=== PATIENT | male | born 1965 | race Caucasian/White ===

== ENCOUNTER 2016-10-30 17:49 | Inpatient (IN) | payer OTHER ==
[~2016-10-30] VITALS: Ht 170.2 cm; Wt 142.7 kg
[2016-10-30] VITALS (10 sets, daily range): BP systolic 134–158; BP diastolic 62–96; PULSE 98–127; RESP 20–32; O2SAT 93–98
[2016-10-30] MEDS ORDERED: Albuterol 2.5 mg/3 mL Inhalation Solution NEB ONE ×6 (17:56→21:10)
[2016-10-30] MEDS ORDERED: 0.9% Sodium Chloride 1,000 ML IV ONE (17:58)
[2016-10-30] MEDS ORDERED: Magnesium Sulf 2 Gm/50mL Water 2 GM in IV Premix 1 EACH IV ONE (18:00)
[2016-10-30] MEDS ORDERED: MethylprednisoLONE Sodium Succinate 62.5 mg/mL 2 mL Inj IVPUSH ONE (18:00)
--- NOTE | 2016-10-30 18:01 | ED.REPORT ---
HPI-Dyspnea / Wheezing Date of Service Oct 30, 2016 ED Provider: Michel Delgado MD History of Present Illness: OCC This is a 51 year old male with a history of COPD, asthma, DM, and HTN presenting to the emergency department from urgent care via EMS complaining of dyspnea that began 2 days ago. At urgent care, oxygen saturation of 90%, fever 100.1 F, administered duoneb x3 and 500 mg Tylenol. En route, pt started on CPAP. Associated symptoms include shaking chills, productive cough, and diaphoresis. Nursing Notes Stated Complaint: RESPIRATORY DISTRESS Chief Complaint: Respiratory Distress Nursing Notes Reviewed: Yes (Polyplus-transfection, MyWave not reconciled) Allergies: Coded Allergies: hydrocodone (Verified Allergy, Intermediate, itchy, 10/30/16) General Time Seen by MD: 17:47 Chief Complaint Shortness of breath Hx Obtained From: Patient, EMS Arrived By: Ambulance Sudden in Onset?: Yes Onset Occurred: 2 days ago Symptom Duration: Since onset Severity: Current: No pain currently Pertinent Negative: Pt denies other symptoms Recent Healthcare: No recent hospitalization, Recent doctor visit Similar Sx Previous: No Past Medical History Past Medical History Asthma Hypertension Diabetes mellitus Hypercholesterolemia Obesity History sleep apnea Smoking History Former Smoker Social History Alcohol Use: Denies alcohol use Ambulatory Status Independent Review of Systems Constitutional: Reports: Chills, Denies: Fever Respiratory: Reports: Prod cough, white, Shortness of breath Cardiovascular: Denies: Chest pain Musculoskeletal: Denies: Back pain, Extremity pain, Extremity swelling Complete sys rev & neg: except as marked. Physical Exam Initial Vital Signs Vital Signs (First) Date Time Temp Pulse Resp B/P Pulse Ox O2 Delivery O2 Flow Rate FiO2 10/30/16 17:50 38.2 112 32 153/96 98 BiPAP 10/30/16 18:16 32 10/30/16 19:20 8 Initial VS: Reviewed, Vital signs abnormal Head / Eyes: Atraumatic, Normocephalic, PERRL ENT: Mucous membranes moist, Conjunctiva normal, No scleral icterus Extremities: Vascular intact, Neuro intact, No swelling, No tenderness Skin: Warm, Dry, No cyanosis Neurologic: Alert, Oriented, Nonfocal Psychiatric: Mood/affect normal, Behavior normal, Normal thought content General/Constitutional: Awake, Alert Neck: Atraumatic, Supple, No meningismus, Full range of motion, No swelling, Non-tender, No masses Resp Distress / Stridor: Positive: Resp distress moderate Wheezing / Retractions: Positive: Wheeze insp/exp diffuse Cardiovascular: No murmurs, No rubs Heart Rate / Rhythm: Positive: Tachycardia Interpretation & Diagnostics Lab Results Interpretation Result Diagram: 10/30/16180210/30/161802 Test 10/30/16 18:03 10/30/16 18:13 White Blood Count 8.2th/mm3 (3.8-10.1) Red Blood Count 5.99mil/mm3 (4.40-5.80) Hemoglobin 17.4g/dL (13.8-17.2) Hematocrit 50.7% (41.0-50.0) Mean Corpuscular Volume 85fL (81-100) Mean Corpuscular Hemoglobin 29.0pg (27.0-35.0) Mean Corpuscular Hemoglobin Concent 34.3% (32.0-37.0) Red Cell Distribution Width 14.1% (12.3-15.4) Platelet Count 420bil/L (150-400) Neutrophils (%) (Auto) 60% (40-74) Lymphocytes (%) (Auto) 29% (14-46) Monocytes (%) (Auto) 9% (4-12) Eosinophils (%) (Auto) 2% (0-5) Basophils (%) (Auto) 0% (0-3) Sodium Level 138mEq/L (134-144) Potassium Level 4.4mEq/L (3.5-5.2) Chloride Level 96mEq/L (97-108) Carbon Dioxide Level 23mmol/L (18-29) Blood Urea Nitrogen 9mg/dL (6-24) Creatinine 0.93mg/dL (0.76-1.27) Estimat Glomerular Filtration Rate 92mL/min (>59) Glucose Level 141mg/dL (60-99) Calcium Level 9.8mg/dL (8.5-10.1) Magnesium Level 2.1mg/dL (1.6-2.6) Total Bilirubin 0.2mg/dL (0.0-1.2) Aspartate Amino Transf (AST/SGOT) 31U/L (0-50) Alanine Aminotransferase (ALT/SGPT) 39U/L (0-44) Alkaline Phosphatase 102U/L (25-150) Troponin T < 0.010ug/L (0.0-0.011) Pro-B-Type Natriuretic Peptide 34.56pg/mL (0-121) Total Protein 7.8g/dL (6.4-8.4) Albumin 4.6g/dL (3.4-5.0) Procalcitonin 0.12ng/mL (0.00-0.08) Lactic Acid Level 4.0mmol/L (0.4-2.0) Lab Results Interpretation: CBC positive hemoconcentration CMP normal Lactic acid elevated-literature demonstrates that albuterol increases lactic acid, patient's received aggressive albuterol here and this may contribute to component Blood cultures 2 pending Influenza negative X-Ray Chest Interpretation Chest Xray Interpretation: IMPRESSION: Mildly reduced inspiratory volume, but no acute disease. Dictated by: Dillan Navas M.D. on 10/30/2016 at 18:15 Approved by: Dillan Navas M.D. on 10/30/2016 at 18:16 Re-Eval/Medical Decision Med Decision/Clinical Course This is a 51-year-old male ex-smoker with a history of moderate asthma who developed a fever and a cough yesterday, and presented to urgent care in fulminant respiratory distress and respiratory failure., Tachycardic, mildly hypoxic with a respiratory rate of 52. Multiple initial duo nebs were initiated , and rapid EMS transport was pursued. Mask, they initiated BiPAP therapy and rapidly transported-the patient feels that he is improving. Severe asthma exacerbations before but not required hospitalization, en route reports this is the worst-but it feels similar to prior asthma. He has had an increased cough with some sputum production. He denies tulio chest pain just a sense of shortness of breath. No prior history of DVT PE, no prior known cardiac disease. On arrival the patient has BiPAP in place, he is able to nod yes or no answer limited questions but has very poor air movement with moderate respiratory distress, audible bronchospasm. He is tachycardic and tachypneic, but is not currently hypoxic is receiving supplemental O2. He is significantly obese, but I do not appreciate any overt findings of venous thromboembolism on clinical exam. The patient received [id number] aggressive nebulizers. He received DuoNeb with the Atrovent component prior to arrival, received steroids, magnesium, and over 30 mg of albuterol. CPAP support initially, and made marked improvement, to the point that the patient's now able to converse, and a trial off CPAP is being pursued. Laboratory studies are negative for influenza, blood cultures are pending, he appears hemoconcentrated so IV fluids are given. Lactic acid is elevated, but I suspect this is secondary to the massive amounts of albuterol that is received the studies of indicated albuterol does cause direct lactic acid elevation-the patient does not appear septic. He is however being treated with empiric ceftriaxone and Zithromax given the question of a pneumonia and the presentation. The patient did improve to the point that we are able to discontinue the CPAP. He is still moderately bronchospastic but is now conversant and no longer in fulminant respiratory distress, and overall is in much improved condition. He is being admitted for continued management. Source of Hx: Old records, EMS Re-Evaluation/Progress : Time of Eval: 18:42 Patient Status: Condition improved, Mild relief Consultation : Referral / Consult Name: Albania Magana DO Consulted With: Hospitalist Call Returned at: 19:48 Digital Retoucher: Accepts admit Differential Diagnosis: Positive: Asthma, Respiratory failure, Upper resp infection, Negative: Acute coronary syndrome, Hypertensive emergency, Myocardial infarction, Pneumothorax, Pulmonary embolism Counseled Regarding: Diagnosis, Lab results, Need for follow-up, Need for admission Discharge & Departure Impression: Primary Impression: Status asthmaticus Asthma severity: severe persistent Qualified Code: J45.52 - Severe persistent asthma with status asthmaticus Additional Impression: Respiratory infection Disposition: ADMITTED TO HOSPITAL Discharge Condition All VS Reviewed: Yes Condition: Stable Referrals: James Reyes DO (PCP) Crit Care Except Billable Proc Time Spent: 30-74 minutes Services Performed: Patient management by me, Time spent at bedside, Reviewing test results, Reviewing imaging, Discussing patient care, Documentation in record, Time with fam/surrogate Scribe Attestation Portions of this note were transcribed by Katerina Cisneros. I, Dr. Delgado personally performed the history, physical exam and medical decision-making; I reviewed and confirmed the accuracy of the information in the transcribed note. Signed by: astrid Wilkins. 10/30/2016, 23:30. Michel Delgado MD Oct 30, 2016 18:01 KATERINA CISNEROS Oct 30, 2016 18:05
[2016-10-30 18:05] LABS: Mean Corpuscular Volume 85 fL (81-100); Platelet Count 420 bil/L (150-400)
[2016-10-30 18:06] LABS: BASOPHILS % (AUTO) 0 % (0-3); EOSINOPHILS % (AUTO) 2 % (0-5); MONOCYTES % (AUTO) 9 % (4-12); NEUTROPHILS % (AUTO) 60 % (40-74)
--- NOTE | 2016-10-30 18:16 | DRSVH ---
PROCEDURE: X-RAY CHEST ONE VIEW, PORTABLE ([id number]) INDICATIONS: SOB fever TECHNIQUE: One view of the chest was acquired. COMPARISON: [facility], CR, XR CHEST 2VW, 06/03/2016, 13:31. [facility], CR , CHEST 2VW, 12/25/2013, 8:45. FINDINGS: Surgical changes and devices: None. Lungs and pleura: No pleural effusions or pneumothorax. Lungs are clear. Mediastinum: Mediastinal contours appear normal. Heart size is normal. Bones and chest wall: No suspicious bony lesions. Overlying soft tissues appear unremarkable. IMPRESSION: Mildly reduced inspiratory volume, but no acute disease. Dictated by: Dillan Navas M.D. on 10/30/2016 at 18:15 Approved by: Dillan Navas M.D. on 10/30/2016 at 18:16
[2016-10-30 18:44] LABS: Magnesium 2.1 mg/dL (1.6-2.6)
[2016-10-30 18:47] LABS: TROPONIN T < 0.010 ug/L (0.0-0.011)
[2016-10-30] MEDS ORDERED: Azithromycin Inj 500 MG in Dextrose 5% w/Vial Mate 250 ML IV ONE (19:20)
[2016-10-30] MEDS ORDERED: cefTRIAXone Inj 2,000 MG in Dextrose 5% Minibag Plus 50 ML IV ONE (19:20)
[2016-10-30] MEDS ORDERED: Alum-Mag Hydrox-Simeth 30 mL Suspension PO PRN (19:55)
[2016-10-30] MEDS ORDERED: Polyethylene Glycol (PEG) 17 Gm Powder PO PRN (19:55)
[2016-10-30] MEDS ORDERED: Ondansetron 2 mg/mL 2 mL Inj IVPUSH PRN (19:55)
[2016-10-30] MEDS ORDERED: DULoxetine 30 mg DR Capsule PO ONE (20:00)
[2016-10-30] MEDS ORDERED: oxyCODONE-Acetamin 5-325 mg Tablet PO ONE (20:00)
[2016-10-30] MEDS ORDERED: Glucose 40% Oral Gel 15 Gm Tube PO PRN (21:25)
[2016-10-30] MEDS ORDERED: Albuterol 1.25 mg/3 mL Inhalation Solution NEB PRN (21:25)
--- NOTE | 2016-10-30 21:38 | PCM.HPMED ---
Subjective Date of Service Oct 30, 2016 Primary Provider: Admitting Physician: Primary Care Physician: James Reyes DO Attending Physician: Chief Complaint: Respiratory distress History of Present Illness: Patient is a 51-year-old morbidly obese gentleman with history of asthma, hypertension, depression who presents to the [facility] ER with a 2 day complaint of respiratory distress. Patient reports that on Sunday night ([facility] he started to experience coughing fits associated with difficulty getting full breath. These coughs were nonproductive. He reports that on Sunday/ he used his nebulizer (albuterol) 3 times, and this helped to relieve some of his symptoms. Unfortunately, early this morning despite feeling well he did use his nebulizer, and reports that since that time this morning he has progressively become more short of breath with more coughing and more respiratory distress. He presented at [facility] [place] [facility] and was subsequently sent to the ER via ambulance. As far as his asthma history: He was diagnosed in 2013, but has yet to perform any PFTs.Spirometry from 02/12/2014 demonstrates prebronchodilator FVC of 3.39 L ( 75%), FEV1 of 2.22 L (60%), FEV1/FVC of approximately 70%, and a PEF of 2.76 L/ s (approximately 33%). Postbronchodilator demonstrates FVC of 3.47 L (76%), FEV1 of 2.62 L (71%), FEV1/FVC of 75%, and a PEF of 4.43 L/s (53%). He denies monitoring PEF on a regular basis. Patient reports that in 2013 he was started on Flovent (and has been compliant with this medication). He reports at the beginning of this year she was switched to Breo (his only complaint with this as he feels that it does not last as long as the Flovent). Otherwise he has been on an albuterol nebulizer, and an albuterol rescue inhaler. The nebulizer he typically uses twice a day before administering his doses of inhaled corticosteroid. The albuterol inhaler he also typically uses 2 times a day. He denies previous ER visits, or hospitalization for his asthma. He denies prior intubation. He denies any use of by mouth steroids. Reports medication compliance. He denies any sick contacts, or recent travel. He reports that his partner does currently smoke, but the patient quit smoking back in 2013. She denies any symptoms associated with a URI or other infection (other than his nonproductive cough as noted). He reports headache associated with cough, and vision difficulty (his contacts have been discontinued due to insurance, and he is awaiting assessment for corrective lenses), he reports that on Sunday and Sunday he had a sore throat but not now, and he reports pain/numbness in his bilateral lower extremities associated with his chronic back pain. In the ER, he received several treatments of nebulized albuterol, and was on BiPAP for a time. He is now off of BiPAP, and reports that he feels much better. He also received an IV dose of Solu-Medrol 125 mg. He also received 2 g of magnesium IV. Patient is admitted under inpatient status with expected length of stay greater than 2 midnights due to severity of presenting symptoms, risk of adverse event, and complexity of treatment plan. Comprehensive review of systems conducted and was negative except for the pertinent positives listed in history of present illness above. Allergies Coded Allergies: hydrocodone (Verified Allergy, Intermediate, itchy, 10/30/16) Home Medications Francisco Javier Root Ruben [phone] 1965 10/30/2016 05:05 PM 09/1507/29/2014 [facility]st [facility] ComforTch Lancet 28 gauge use in the morning and before each meal (4 x daily) 06/27/2016 albuterol sulfate 2.5 mg/0.5 mL solution for nebulization inhale 0.5 milliliter by nebulization route 3-4 times every day for 4 days then as needed. no more then 4x per day 06/03/2016 amlodipine 10 mg tablet take 1 tablet by oral route every day 06/06/2016 atorvastatin 10 mg tablet take 1 tablet by oral route every day 07/25/2016 Breo Ellipta 200 mcg-25 mcg/dose powder for inhalation inhale 1 puff by inhalation route every day at the same time each day 06/27/2016 bupropion HCl SR 200 mg tablet,sustained-release take 1 tablet by oral route 2 times every day 10/26/2015 Enteric Coated Aspirin 81 mg tablet,delayed release take 1 tablet by oral route every day 05/04/2016 Enteric Coated Aspirin 81 mg tablet,delayed release take 1 tablet by oral route every day 06/22/2016 fluticasone 50 mcg/actuation nasal spray,suspension inhale 2 spray by intranasal route every day in each nostril 09/01/2016 gabapentin 300 mg capsule take 2 po tid 06/06/2016 lisinopril 40 mg tablet take 1 tablet by oral route every day 06/06/2016 metformin 1,000 mg tablet take 1 tablet by oral route 2 times every day with morning and evening meals 10/06/2016 Percocet 5 mg-325 mg tablet take 1 tablet by oral route every 8 hrs as needed 05/01/2016 Spiriva with HandiHaler 18 mcg and inhalation capsules inhale 1 capsule by inhalation route every day using 1 inhalation via handihaler 06/03/2016 triamterene 37.5 mg-hydrochlorothiazide 25 mg capsule take 1 capsule by oral route every day 07/31/2014 Trueresult Blood Glucose Systm kit use as directed 08/26/2014 Truetest Test Strips use four times daily 05/01/2016 Ventolin HFA 90 mcg/actuation aerosol inhaler inhale 2 puff by inhalation route every 4 - 6 hours as needed PMH Asthma Hypertension Diabetes mellitus not on insulin Hypercholesterolemia Morbid obesity History sleep apnea Chronic back pain on opiates History of bilateral lung nodules (CT noncontrast of the chest in August 2016 demonstrates stability) Please note, patient had a stress echo in 2014 which was negative. Surgical History Patient denies any surgical history Family History Reports that his mom at the age of 60 due to complications of abrupt alcohol withdrawal. He denies any medical issues associated with his father or his siblings. He denies knowledge of any medical issues with his grandparents. 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 With regards to his depression, patient reports that "suicide is not an option because I am jehovah's witness." He denies any suicidal ideation. As far as exposures, (he is not currently working) he does report that they used an acid spray to clean out 18 [employer] truck's. He reports that he used a respirator, but "this stuff was all over the place." He denies any other significant exposures. He is a lifelong [place], without significant travel history. They currently have dogs. His significant other is Mk Dominique, and they have been together for many years now. He denies ever being tested for HIV or hepatitis C. Exam Vital Signs Vital Sign - Last Date Time Temp Pulse Resp B/P Pulse Ox O2 Delivery O2 Flow Rate FiO2 10/30/16 19:44 104 22 BiPAP 40 10/30/16 18:17 98 10/30/16 17:50 38.2 153/96 Exam General: Alert, Oriented X3, Cooperative, mild Distress, but much improved reportedly from when he first presented. Head: Normocephalic, atraumatic. External ears normal. Eyes: PERRL, EOMI. Anicteric sclerae. Conjunctivae are not injected Mouth: Mouth Normal, Mucous Membranes Moist/[place] Neck: Neck supple with full range of motion. No Thyromegaly. Chest & Lungs: Early and mid inspiratory wheezes appreciated throughout the right lung alfaro, but not so much on the left. Do not appreciate any rales or rhonchi. Patient is not using accessory muscles, do not appreciate any asymmetry with regards to breath sounds, there is no tracheal deviation. There is no indication of subcutaneous air. Cardiovascular: Tachycardic Rate/appears sinus Rhythm on the monitor, Normal S1 , Normal S2, No Murmurs/Rubs/Gallops, and do not appreciate any precordial crunch. Do not appreciate any pulses paradoxus (radial pulses are 2+ bilaterally). Abdomen: Non-tender, Non-distended, No masses, Normoactive bowel tones, Soft Musculoskeletal: Normal Range of Motion Extremities: No cyanosis/clubbing/edema bilat Skin: Somewhat diaphoretic. Do not appreciate any rash. Neurological: Grossly Neurologically Intact, Cranial Nerves 2-12 Intact, Normal Speech (speaking in full sentences) Psych: Normal mood and affect. Thought process and content intact. Lab and Diagnostics Labs Lactic acid is 4 LFTs are unremarkable Troponin is negative 1 ProBNP is negative Pro calcitonin is 0.12 Result Diagram: 10/30/16180210/30/161802 Microbiology Rapid flu was negative Blood cultures are pending X-Rays, CTs and MRIs Date of Service: 10/30/161757 PROCEDURE: X-RAY CHEST ONE VIEW, PORTABLE ([id number]) IMPRESSION: Mildly reduced inspiratory volume, but no acute disease. Dictated by: Dillan Navas M.D. on 10/30/2016 at 18:15 12-lead ECG Not performed this visit. Assessment & Plan Patient is a 51-year-old morbidly obese gentleman with history of asthma, hypertension, depression who presents to the [facility] ER with a 2 day complaint of respiratory distress. Found to have asthma exacerbation. #1 exacerbation of asthma, moderate. Present on admission -Much more severe at time of presentation with noted tachypnea, tachycardia and respiratory distress. -Following multiple treatments of albuterol and a period of BiPAP, patient is much improved. -Chest x-ray does not demonstrate any pulmonary infiltrate, and rapid flu is negative. Consider PCR if not improving -Patient denies sick contacts, but this could be secondary to URI given his exposure at the [employer]. -Otherwise there is no clear indication of obvious precipitant -We will continue to administer oxygen in order to keep his saturations greater than or equal to 90% -We will have respiratory therapy regularly assess a PEF -We will continue to monitor closely for signs of fatigue, and will assess with ABG if needed -We will continue with DuoNeb's every 4 hours scheduled, with albuterol nebulizers every 2 hours as needed -We will continue to administer IV steroids tonight, and defer to day team regarding continuation of IV, or switch to by mouth -We will keep on BiPAP available, but patient has reported that he does not wish to proceed with intubation. -He was given ceftriaxone and azithromycin in the ER. His pro calcitonin is 0.12 so we will continue for now. And recheck pro calcitonin in the morning. -We will continue with inhaled corticosteroids when systemic steroids are reduced, likely will administer via nebulizer (budesonide) -Consideration for adding a leukotriene -Patient reported that he has an appointment with pulmonology in March, and perhaps given his hospitalization we can get him a sooner appointment. #2 fever, acute. Present on admission -Patient is noted to be warm and diaphoretic at this time even though he is looking much better than at presentation -Possibility of infection is still present, and therefore continuing antibiotics -We will continue to assess vital signs -Patient is in a long-term same-sex relationship, and denies any previous testing for HIV or hepatitis C * Will add HIV and hepatitis C testing this hospitalization #3 lactic acidosis with anion gap acidosis, acute. Present on admission -Likely related to albuterol admin -We will check aspirin and Tylenol levels -Patient denies any alcohol use, and per presentation low risk for ingestion -We will continue to follow lactic acid every 2 hours until less than 2 #4 hypertension, chronic -We will continue patient's home antihypertensives 1 min rec is completed #5 diabetes mellitus type II not on insulin, chronic -We will check an A1c -As we are giving him steroids this will likely increase his sugars, and therefore we will start correction scale insulin (low-dose to start) -We will hold his metformin (given his lactic acidosis) Chronic conditions: Hypercholesterolemia-we will continue statin once medically rec is completed Morbid obesity-certainly weight loss would be beneficial to his multiple comorbidities History sleep apnea-he denies being on CPAP, and would likely benefit from outpatient sleep study Chronic back pain on opiates-we will continue his home opiate medication, Cymbalta, gabapentin once medically rec is completed PRN MEDICATIONS - Acetaminophen as needed for mild pain/fever/headache - Bowel regimen as needed - Antiemetic as needed Patient is admitted under inpatient status with expected length of stay greater than 2 midnights due to severity of presenting symptoms, risk of adverse event, and complexity of treatment plan. Pain Evaluation: Adequate Pain Control GI Prophylaxis: Not indicated VTE Prophylaxis: Sub-Q Heparin (Unfractionated) Resuscitation Status: DNR/DNI:Do Not Resuscitate/Intubate (discussed CODE STATUS at length with patient. He is adamant about the DO NOT RESUSCITATE DO NOT INTUBATE designation.) Attending Statement The patient was seen and examined together with house staff on 10/30/2016 and I agree with the history, exam and plan as outlined in the note above. copies to: James Reyes, Greg Jensen DO Oct 30, 2016 21:38 Albania Magana DO Oct 31, 2016 02:26
[2016-10-30] MEDS ORDERED: Lactated Ringer's 1,000 ML IV SCH (21:40)
[2016-10-30] MEDS: Insulin LISPRO 300 Unit/3 mL Inj SUBQ SCH (22:00)
[2016-10-30] MEDS ORDERED: Ipratropium 0.02% 0.5 mg/2.5 mL Inhalation Solution NEB SCH (22:20)
[2016-10-30] MEDS ORDERED: Albuterol 1.25 mg/3 mL Inhalation Solution NEB SCH (22:20)
[2016-10-30] MEDS ORDERED: OXYC1TAB24 PO (22:45)
[2016-10-30] MEDS ORDERED: LISI40TA PO (22:45)
[2016-10-30] MEDS ORDERED: albuterol sulfate NEBULIZ062 (22:45)
[2016-10-30] MEDS ORDERED: ventolin HFA INHALATION (22:45)
[2016-10-30] MEDS ORDERED: METF1000 PO (22:45)
[2016-10-30] MEDS ORDERED: ASPI-973 PO (22:45)
[2016-10-30] MEDS ORDERED: BUPR200T34 PO (22:45)
[2016-10-30] MEDS ORDERED: AMLO10TA3 PO (22:45)
[2016-10-30] MEDS ORDERED: GABA600T2 PO (22:45)
[2016-10-30] MEDS ORDERED: ATRV10T PO (22:45)
[2016-10-30] MEDS ORDERED: TRIA1CAP5 PO (22:45)
[2016-10-30] MEDS ORDERED: FLUT15.812 NS (22:45)
[2016-10-30] MEDS ORDERED: DULO30CA PO (22:45)
[2016-10-30] MEDS ORDERED: TIOT18CA3 IH (22:45)
[2016-10-30] MEDS ORDERED: DULO60CA42 PO (22:45)
--- NOTE | 2016-10-30 22:59 | NUR ---
admit note pt to floor able to ambulate with SBA to scale and bed. pt on 6L NC, LBD TEACHER in place able to tritrate to 4L NC, bipap in room PRN for tonight. pt received multiple doses of duoneb in ED. pt denies any pain. med rec completed from MD note and going over with pt, LR at 50cc/hr hung, IV abx hung in ED and completed here. pt denies any nausea wanting to try and eat something. orientated to room, bed and call light. tele SR-ST 90-110s, pt had flu vaccine, pt not wanting SCDs on while trying to sleep he is very restless.
[2016-10-30] MEDS: Albuterol 2.5 mg/3 mL Inhalation Solution NEB SCH (23:47)
[2016-10-31] VITALS (11 sets, daily range): BP systolic 145–172; BP diastolic 83–105; PULSE 89–109; RESP 16–22; O2SAT 94–98
[2016-10-31] MEDS ORDERED: Albuterol-Ipratropium 3 mL Inhalation Solution NEB SCH (00:30)
[2016-10-31] MEDS: MethylprednisoLONE Sodium Succinate 62.5 mg/mL 2 mL Inj IVPUSH SCH ×2 (00:36→08:42)
[2016-10-31] MEDS: Heparin 5,000 Unit/mL Inj SUBQ SCH ×4 (00:36→23:46)
[2016-10-31 02:00] LABS: APPEARANCE,URINE CLEAR (CLEAR,HAZY); COLOR,URINE YELLOW (YELLOW)
[2016-10-31 02:01] LABS: OCCULT BLOOD,URINE NEGATIVE (NEGATIVE); UROBILINOGEN,URINE NORMAL (NORMAL)
[2016-10-31 02:55] LABS: BASOPHILS % (AUTO) 0.5 % (0-3); EOSINOPHILS % (AUTO) 0.1 % (0-5); MONOCYTES % (AUTO) 4.4 % (4-12); Mean Corpuscular Hemoglobin 28.9 pg (27.0-35.0); Mean Corpuscular Volume 85.6 fL (81-100); NEUTROPHILS % (AUTO) 84.8 % (40-74); Platelet Count 349 bil/L (150-400)
[2016-10-31 03:35] LABS: Magnesium 2.3 mg/dL (1.6-2.6); Phosphorus 4.5 mg/dL (2.5-4.9)
[2016-10-31] MEDS: Albuterol 2.5 mg/3 mL Inhalation Solution NEB SCH ×3 (03:51→08:02)
[2016-10-31] MEDS: oxyCODONE-Acetamin 5-325 mg Tablet PO PRN ×3 (05:40→23:46)
--- NOTE | 2016-10-31 06:45 | NUR ---
lactic acid pts lactic acid increasing MD aware q2 hour lactic acid draws until under 2. pt with LR at 50cc/hr running
--- NOTE | 2016-10-31 06:46 | NUR ---
back pain pt with sudden back pain 05/20 pt states this happens at home, gave 1 percocet with good relief.
[2016-10-31] MEDS: Insulin LISPRO 300 Unit/3 mL Inj SUBQ SCH ×4 (08:00→21:37)
[2016-10-31] MEDS: DULoxetine 30 mg DR Capsule PO SCH ×2 (08:28→17:53)
[2016-10-31] MEDS: Lisinopril 40 Tablet PO SCH (08:28)
[2016-10-31] MEDS: buPROPion SR 100 mg ER12 Tablet PO SCH ×2 (08:29→21:32)
[2016-10-31] MEDS ORDERED: Tiotropium 18mcg/Cap 5 Capsule Inhaler Kit INHALATION SCH (08:30)
[2016-10-31] MEDS: 0.9% Sodium Chloride 1,000 ML IV SCH ×4 (11:30→22:05)
--- NOTE | 2016-10-31 14:49 | NUR ---
back pain c/o 8/10 back pain prn percocet will follow up
[2016-10-31] MEDS: cefTRIAXone Inj 1,000 MG in Dextrose 5% Minibag Plus 50 ML IV SCH (16:02)
[2016-10-31] MEDS: Albuterol-Ipratropium 3 mL Inhalation Solution NEB SCH ×2 (16:32→21:02)
[2016-10-31] MEDS: Azithromycin Inj 500 MG in Dextrose 5% w/Vial Mate 250 ML IV SCH (17:46)
--- NOTE | 2016-10-31 20:11 | PCM.PNMED ---
Subjective Date of Service Oct 31, 2016 Subjective Patient is a 51-year-old morbidly obese gentleman with history of asthma, hypertension, depression who presents to the [facility] ER with a 2 day complaint of respiratory distress. This morning, he reports improvement of his breathing. He no longer feels like he cannot breath. His wheezing has improved. He had a fever yesterday but denies chills. He has been coughing since Sunday. He does not have known sick exposures but [place] 2 nights. He does not have chest pain, dysuria , abdominal pain, nausea, vomiting, or diarrhea. He had 1-2 drinks of alcohol over the weekend. He reports that he did not have much to eat or drink the past 2 days. He had a cup of soup and some crackers yesterday. Exam Vital Signs Vital Sign - Last Date Time Temp Pulse Resp B/P Pulse Ox O2 Delivery O2 Flow Rate FiO2 10/31/16 16:36 36.9 89 19 172/105 96 10/31/16 16:32 Nasal Cannula 2.00 10/30/16 19:44 40 Intake and Output 10/30/16 10/30/16 10/31/16 Cumulative From/Thru 15:00 23:00 07:00 10/30/16 17:50 - 10/31/16 06:19 Intake Total 1000 ml 3262 ml 4262 ml Output Total 2200 ml 2200 ml Balance 1000 ml 1062 ml 2062 ml Intake Oral 2580 ml 2580 ml IV Total 1000 ml 682 ml 1682 ml Output Urine Total 2200 ml 2200 ml Exam General: Alert, Oriented X3, Cooperative, no acute distress Head: Normocephalic, atraumatic. External ears normal. Eyes: PERRL, EOMI. Anicteric sclerae. Conjunctivae are not injected Mouth: Mouth Normal, Mucous Membranes Moist/[place] Neck: Neck supple with full range of motion. No Thyromegaly. Chest & Lungs: Cough. End expiratory wheezes appreciated bilaterally with prolonged expiration. Do not appreciate any rales or rhonchi. Patient is not using accessory muscles, do not appreciate any asymmetry with regards to breath sounds, there is no tracheal deviation. There is no indication of subcutaneous air. Cardiovascular: Regular rate and rhythm, Normal S1, Normal S2, No Murmurs/Rubs/ Gallops Abdomen: Non-tender, Non-distended, No masses, Normoactive bowel tones, Soft Musculoskeletal: Normal Range of Motion Extremities: No cyanosis/clubbing/edema bilat Skin: Somewhat diaphoretic. Do not appreciate any rash. Neurological: Grossly Neurologically Intact, Cranial Nerves 2-12 Intact, Normal Speech (speaking in full sentences) Psych: Normal mood and affect. Thought process and content intact. IVs and Medications Medications Reviewed: Medications were reviewed in detail Lab and Diagnostics Result Diagram: 10/31/1624410/31/16244 Microbiology Rapid flu was negative Blood cultures are pending X-Rays, CTs and MRIs Date of Service: 10/30/16 2200 PROCEDURE: X-RAY CHEST ONE VIEW, PORTABLE ([id number]) IMPRESSION: Mildly reduced inspiratory volume, but no acute disease. Dictated by: Dillan Navas M.D. on 10/30/2016 at 18:15 12-lead ECG Not performed this visit. Assessment & Plan Patient is a 51-year-old morbidly obese gentleman with history of asthma, hypertension, depression who presents to the [facility] ER with a 2 day complaint of respiratory distress. Found to have asthma exacerbation. 1. Acute sepsis. Present on admission. Active. -Met criteria with initial vital signs of 38.2 degrees C, heart rate 112 bpm, and respiratory rate 32. Probable community acquired pneumonia as source of infection. -Patient is noted to be warm and diaphoretic -Elevated lactic acid level, and mildly elevated procalcitonin -We will continue to assess vital signs -Patient is in a long-term same-sex relationship, and denies any previous testing for HIV or hepatitis C * Will add HIV and hepatitis C testing this hospitalization -Resumed ceftriaxone 1000 mg IV and azithromycin 500 mg IV every 24 hours -IV fluids as below 2. Lactic acidosis with anion gap acidosis, acute. Present on admission. Active. -Likely related to infection and albuterol treatments -Aspirin and Tylenol levels within normal limits -Patient denies any excessive alcohol use, and per presentation low risk for ingestion -He does report low PO intake for the past 2 days -We will continue to follow lactic acid every 2 hours until less than 2 -Pt given 2 L of normal saline bolus, continue normal saline at 150 ml/h now and adjust as needed 3. Probable Community acquired pneumonia, acute. Present on admission. Active. -Patient is positive for parainfluenza virus, which likely caused a secondary bacterial pneumonia. -Antibiotics as above 4. Exacerbation of asthma, moderate. Present on admission. Active. -Much more severe at time of presentation with noted tachypnea, tachycardia and respiratory distress. -Following multiple treatments of albuterol and a period of BiPAP last night, patient is much improved. -Chest x-ray does not demonstrate any pulmonary infiltrate, and rapid flu is negative. -Patient denies sick contacts, but this could be secondary to URI given his exposure at the [employer]. He is positive for parainfluenza virus. See above. -We will continue to administer oxygen in order to keep his saturations greater than or equal to 90% -We will have respiratory therapy regularly assess a PEF -We will continue to monitor closely for signs of fatigue, and will assess with ABG if needed -We will continue with DuoNeb's every 4 hours scheduled, with albuterol nebulizers every 2 hours as needed -We switched IV steroids to PO prednisone 40 mg BID -We will keep BiPAP available, but patient has reported that he does not wish to proceed with intubation. -We will continue with inhaled corticosteroids tomorrow as systemic steroids have been reduced today, likely will administer via nebulizer (budesonide) -Consideration for adding a leukotriene -Patient reported that he has an appointment with pulmonology in March, and perhaps given his hospitalization we can get him a sooner appointment. 5. Hypertension, chronic -We will continue patient's home antihypertensives 6. Diabetes mellitus type II not on insulin, chronic -We will check an A1c -As we are giving him steroids this will likely increase his sugars, and therefore we will start correction scale insulin (low-dose to start) -We will hold his metformin (given his lactic acidosis) Chronic conditions: Hypercholesterolemia-we will continue statin Morbid obesity-certainly weight loss would be beneficial to his multiple comorbidities History sleep apnea-he denies being on CPAP, and would likely benefit from outpatient sleep study Chronic back pain on opiates-we will continue his home opiate medication, Cymbalta, gabapentin PRN MEDICATIONS - Acetaminophen as needed for mild pain/fever/headache - Bowel regimen as needed - Antiemetic as needed Patient is admitted under inpatient status with expected length of stay greater than 2 midnights due to severity of presenting symptoms, risk of adverse event, and complexity of treatment plan. GI Prophylaxis: Not indicated VTE Prophylaxis: Sub-Q Heparin (Unfractionated) VTE Mechanical Devices: Intermittant Pneumatic CD Resuscitation Status: DNR/DNI:Do Not Resuscitate/Intubate (discussed CODE STATUS at length with patient. He is adamant about the DO NOT RESUSCITATE DO NOT INTUBATE designation.) Time spent 30 minutes Attending Statement Patient seen and examined with house staff. Agree with all attached documentation. Soraya Mcguire DO Oct 31, 2016 16:52 Ruiz Perez MD Nov 08, 2016 07:35
[2016-10-31] MEDS: predniSONE 20 mg Tablet PO SCH (21:32)
[2016-10-31] MEDS ORDERED: hydrOXYzine Pamoate 25 mg Capsule PO ONE (22:05)
[2016-11-01] VITALS (9 sets, daily range): BP systolic 142–174; BP diastolic 89–108; PULSE 86–107; RESP 16–24; O2SAT 92–97
[2016-11-01 00:07] LABS: Hemoglobin A1C 7.5 % (4.8-5.6)
[2016-11-01] MEDS: Albuterol-Ipratropium 3 mL Inhalation Solution NEB SCH ×6 (01:00→20:47)
[2016-11-01] MEDS: 0.9% Sodium Chloride 1,000 ML IV SCH ×3 (04:53→20:05)
[2016-11-01 05:25] LABS: BASOPHILS % (AUTO) 0.1 % (0-3); EOSINOPHILS % (AUTO) 0 % (0-5); MONOCYTES % (AUTO) 6.6 % (4-12); Mean Corpuscular Hemoglobin 29.1 pg (27.0-35.0); Mean Corpuscular Volume 86.8 fL (81-100); NEUTROPHILS % (AUTO) 82.2 % (40-74); Platelet Count 324 bil/L (150-400)
--- NOTE | 2016-11-01 06:23 | NUR ---
lactic acid/sleep pts lactic acid fluctuating MD aware, cont NS at 150cc/hr, pt worried about taking prednisone and not being able to sleep, called MD and recieved order for 25mg vistril PO gave pt able to drift off to sleep in between interruptions. pt voiding 3500cc of urine.
[2016-11-01] MEDS: Lisinopril 40 Tablet PO SCH (08:24)
[2016-11-01] MEDS: buPROPion SR 100 mg ER12 Tablet PO SCH ×2 (08:25→20:05)
[2016-11-01] MEDS: DULoxetine 30 mg DR Capsule PO SCH ×2 (08:26→17:30)
[2016-11-01] MEDS: predniSONE 20 mg Tablet PO SCH ×2 (08:26→20:05)
[2016-11-01] MEDS: Insulin LISPRO 300 Unit/3 mL Inj SUBQ SCH ×4 (08:27→22:06)
[2016-11-01] MEDS: Heparin 5,000 Unit/mL Inj SUBQ SCH ×2 (08:28→17:29)
[2016-11-01] MEDS: oxyCODONE-Acetamin 5-325 mg Tablet PO PRN ×2 (08:29→20:06)
[2016-11-01] MEDS: cefTRIAXone Inj 1,000 MG in Dextrose 5% Minibag Plus 50 ML IV SCH (13:23)
[2016-11-01] MEDS: Azithromycin Inj 500 MG in Dextrose 5% w/Vial Mate 250 ML IV SCH (14:09)
--- NOTE | 2016-11-01 17:56 | NUR ---
Social Work Note: Screen Note Data& Assessment: EMR reviewed. Francisco Javier Root is a 51 year old male admitted on 10/30/2016 for asthmatic. Pt has [employer] [place] and sees James Reyes MD for primary care. Pt lives in [place] with his significant other and is independent at baseline. Pt is independent in his room currently. No discharge needs identified at this time. SW to continue to follow if any needs arise. Plan: Anticipated discharge home via POV when medically ready. No discharge needs identified at this time. SW to continue to follow if any needs arise. SOLO Carl
--- NOTE | 2016-11-01 18:48 | NUR ---
Shift: A/o x3, moves all extremities, responds appropriately. VSS, not on tele, O2 sats 96% on 2L NC. Voiding adequately, up ad rocco in room. encouraging activity. PRN meds effective for pain relief. Independent with bed mobility, care ongoing.
--- NOTE | 2016-11-01 21:13 | PCM.PNMED ---
Subjective Date of Service Nov 01, 2016 Subjective Patient is a 51-year-old morbidly obese gentleman with history of asthma, hypertension, depression who presents to the [facility] ER with a 2 day complaint of respiratory distress. He continues to have a cough, which is improving. He continues to be able to breath better. He is improving. He does not have any fever or chills, abdominal pain, nausea, vomiting, or diarrhea. Exam Vital Signs Vital Sign - Last Date Time Temp Pulse Resp B/P Pulse Ox O2 Delivery O2 Flow Rate FiO2 11/01/16 08:09 95 18 95 Room Air 11/01/16 08:00 36.5 142/89 11/01/16 05:12 2.00 10/30/16 19:44 40 Intake and Output 10/31/16 10/31/16 11/01/16 Cumulative From/Thru 15:00 23:00 07:00 10/30/16 17:50 - 11/01/16 06:23 Intake Total 3507 ml 3372 ml 59861 ml Output Total 1750 ml 3500 ml 7450 ml Balance 1757 ml -128 ml 3691 ml Intake Oral 640 ml 1436 ml 4656 ml IV Total 2867 ml 1936 ml 6485 ml Output Urine Total 1750 ml 3500 ml 7450 ml Exam General: Alert, Oriented X3, Cooperative, no acute distress, obese Head: Normocephalic, atraumatic. External ears normal. Eyes: PERRL, EOMI. Anicteric sclerae. Conjunctivae are not injected Mouth: Mouth Normal, Mucous Membranes Moist/[place] Neck: Neck supple with full range of motion. No Thyromegaly. Chest & Lungs: Cough. End expiratory wheezes appreciated bilaterally with prolonged expiration, worse on the right. Do not appreciate any rales or rhonchi. Patient is not using accessory muscles. There is no indication of subcutaneous air. Cardiovascular: Regular rate and rhythm, Normal S1, Normal S2, No Murmurs/Rubs/ Gallops Abdomen: Non-tender, Non-distended, No masses, Normoactive bowel tones, Soft Musculoskeletal: Normal Range of Motion Extremities: No cyanosis/clubbing/edema bilat Skin: Do not appreciate any rash. Neurological: Grossly Neurologically Intact, Cranial Nerves 2-12 Intact, Normal Speech (speaking in full sentences) Psych: Normal mood and affect. Thought process and content intact. IVs and Medications Medications Reviewed: Medications were reviewed in detail Lab and Diagnostics Result Diagram: 11/01/1650911/01/16509 Microbiology Rapid flu was negative Blood cultures are pending X-Rays, CTs and MRIs Date of Service: 10/30/16 8908 PROCEDURE: X-RAY CHEST ONE VIEW, PORTABLE ([id number]) IMPRESSION: Mildly reduced inspiratory volume, but no acute disease. Dictated by: Dillan Navas M.D. on 10/30/2016 at 18:15 12-lead ECG Not performed this visit. Assessment & Plan Patient is a 51-year-old morbidly obese gentleman with history of asthma, hypertension, depression who presents to the [facility] ER with a 2 day complaint of respiratory distress. Found to have asthma exacerbation. 1. Lactic acidosis with anion gap acidosis, acute. Present on admission. Improving. -Likely related to infection and albuterol treatments. Additionally, patient was on metformin prior to admission. -Aspirin and Tylenol levels within normal limits -Patient denies any excessive alcohol use, and per presentation low risk for ingestion -He does report low PO intake for the 2 days prior to admission -We will continue to follow lactic acid every 2 hours until less than 2. Currently patient's lactic acid is around 2 -Pt given 2 L of normal saline bolus, continue normal saline at 150 ml/h now and adjust as needed 2. Exacerbation of asthma, moderate. Present on admission. Active. -Possible COPD given patient's history of smoking. -Much more severe at time of presentation with noted tachypnea, tachycardia and respiratory distress. -Following multiple treatments of albuterol and a period of BiPAP last night, patient is much improved. -Chest x-ray does not demonstrate any pulmonary infiltrate, and rapid flu is negative. -Patient denies sick contacts, but this could be secondary to URI or pneumonia given his exposure at the [employer]. He is positive for parainfluenza virus. See above. -We will have respiratory therapy regularly assess a PEF -We will continue to monitor closely for signs of fatigue, and will assess with ABG if needed -We will continue with DuoNeb's every 4 hours scheduled, with albuterol nebulizers every 2 hours as needed -We switched IV steroids to PO prednisone 40 mg BID -We will keep BiPAP available, but patient has reported that he does not wish to proceed with intubation. -Consider adding inhaled corticosteroid to patient's outpatient regimen or adding a leukotriene -Patient reported that he has an appointment with pulmonology in March, and perhaps given his hospitalization we can get him a sooner appointment. 3. Acute sepsis. Present on admission. Improving. -Met criteria with initial vital signs of 38.2 degrees C, heart rate 112 bpm, and respiratory rate 32. Probable community acquired pneumonia as source of infection. -Patient is noted to be warm and diaphoretic -Elevated lactic acid level, and mildly elevated procalcitonin -We will continue to assess vital signs -HIV and hepatitis C both negative -Resumed ceftriaxone 1000 mg IV and azithromycin 500 mg IV every 24 hours -IV fluids as above 4. Probable community acquired pneumonia, acute. Present on admission. Active. -Patient is positive for parainfluenza virus, which possibly caused a secondary bacterial pneumonia. -Antibiotics as above 5. Hypertension, chronic -We will continue patient's home antihypertensives 6. Diabetes mellitus type II not on insulin, chronic -HgbA1c pending -As we are giving him steroids this will likely increase his sugars, and therefore we will start correction scale insulin (low-dose to start) -Added a nutritional scale to his correctional scale -We will hold his metformin (given his lactic acidosis) -Decreased amount of carbohydrates in his diabetic diet Chronic conditions: Hypercholesterolemia-we will continue statin Morbid obesity-certainly weight loss would be beneficial to his multiple comorbidities History sleep apnea-he denies being on CPAP, and would likely benefit from outpatient sleep study Chronic back pain on opiates-we will continue his home opiate medication, Cymbalta, gabapentin PRN MEDICATIONS - Acetaminophen as needed for mild pain/fever/headache - Bowel regimen as needed - Antiemetic as needed Patient is admitted under inpatient status with expected length of stay greater than 2 midnights due to severity of presenting symptoms, risk of adverse event, and complexity of treatment plan. Possible discharge home tomorrow pending improvement of lactic acidosis and continued improvement of respiratory status. Pain Evaluation: Adequate Pain Control GI Prophylaxis: Not indicated VTE Prophylaxis: Sub-Q Heparin (Unfractionated) VTE Mechanical Devices: Intermittant Pneumatic CD Resuscitation Status: DNR/DNI:Do Not Resuscitate/Intubate (discussed CODE STATUS at length with patient. He is adamant about the DO NOT RESUSCITATE DO NOT INTUBATE designation.) Attending Statement The patient was seen and examined together with Dr. Mcguire on 11/01/2016 and I agree with the history, exam and plan as outlined in the note above. . Soraya Mcguire DO Nov 01, 2016 09:32 Trent Pride MD Nov 02, 2016 07:49
[2016-11-02 00:07] VITALS: PULSE 76; RESP 16; O2SAT 98
[2016-11-02] MEDS: Albuterol-Ipratropium 3 mL Inhalation Solution NEB SCH ×3 (00:07→12:15)
[2016-11-02] MEDS: Heparin 5,000 Unit/mL Inj SUBQ SCH ×2 (00:24→08:46)
[2016-11-02] MEDS: 0.9% Sodium Chloride 1,000 ML IV SCH (03:08)
[2016-11-02 03:20] LABS: BASOPHILS % (AUTO) 0.2 % (0-3); EOSINOPHILS % (AUTO) 0 % (0-5); Mean Corpuscular Hemoglobin 28.7 pg (27.0-35.0); NEUTROPHILS % (AUTO) 79.9 % (40-74); Platelet Count 342 bil/L (150-400)
--- NOTE | 2016-11-02 03:55 | NUR ---
Lactate/Pain/Tele Lactate 2.0 @ 0300 draw, DC Q2 Lactate ;labs per orders, Pain 7/10 , percocet 5 Mg PO x 1, Not on Tele due to electrical anomaly in anatomy , HR and BP withing Base for pt. A&O x 3, independent in room using call light appropriately .
[2016-11-02 04:22] VITALS: BP 157/93; PULSE 82; RESP 21; O2SAT 95
--- NOTE | 2016-11-02 05:31 | ABG ---
DateTimeAnalyzed 05:25:00 -_ pH ____7.387 - 7.350 7.450 pCO2 ___42.9__ -mmHg 35.0 45.0 pO2 198 -mmHg 69.0 116 HCO3- ___25.3__ -mmol/L 22.0 26.0 ABE ____0.6__ -mmol/L -2.0 2.0 tHb ___15.0__ -g/dL O2Hb ___97.9__ -% COHb ____0.5__ -% MetHb ____0.9__ -% sO2 ___99.3__ -% 25.0 FIO2 ___21.0__ -% Drawn By LT - Date/Time Notified____ 05:30:00 -_ Notified By LT - Notified Whom RN - B 763 -mmHg tO2 ___21.0__ -Vol% Ruiz test _Positive -
[2016-11-02 08:20] VITALS: PULSE 90; RESP 18; O2SAT 95
[2016-11-02 08:30] VITALS: BP 156/102; PULSE 87; RESP 20; O2SAT 93
[2016-11-02] MEDS: Azithromycin Inj 500 MG in Dextrose 5% w/Vial Mate 250 ML IV SCH (08:39)
[2016-11-02] MEDS: DULoxetine 30 mg DR Capsule PO SCH (08:39)
[2016-11-02] MEDS: predniSONE 20 mg Tablet PO SCH (08:40)
[2016-11-02] MEDS: buPROPion SR 100 mg ER12 Tablet PO SCH (08:42)
[2016-11-02] MEDS: Lisinopril 40 Tablet PO SCH (08:43)
[2016-11-02] MEDS: oxyCODONE-Acetamin 5-325 mg Tablet PO PRN (08:50)
[2016-11-02] MEDS: Insulin LISPRO 300 Unit/3 mL Inj SUBQ SCH ×2 (08:58→12:35)
[2016-11-02] MEDS ORDERED: ZIT250 PO (11:21)
[2016-11-02] MEDS ORDERED: PRED-508 PO (11:21)
[2016-11-02 12:15] VITALS: PULSE 80; RESP 18; O2SAT 95
--- NOTE | 2016-11-02 13:38 | PCM.DIMED ---
Soraya Mcguire DO 11/02/16 1036: Discharge Instructions Date of Service Nov 02, 2016 Dates of Hospitalization Oct 30, 2016 at 21:03 Diet Diabetic Activity Limited until seen by PCP Call your provider Fever or Chills, Shortness of breath, Bleeding, Chest pain Patient Instructions Continue your inhalers and nebulizers as previously prescribed. Continue azithromycin 250 mg once daily for the next 2 days. Start prednisone 40 mg twice per day for the next 5 days. We recommend reading The Diabetes Solution by Andres Yoon and using [email or web address] to help with weight reduction and optimal diabetes control. Follow up with Dr. Reyes or at [facility] in 1 week. You will be contacted about an at home sleep study. Follow-up Provider: James Reyes, DO Follow-up with PCP in: 1 week Trent Pride MD 11/02/16 1754: Discharge Instructions Attending's Statement The patient was seen and examined together with Dr. Mcguire on 11/02/2016 and I agree with the history, exam and plan as outlined in the note above. . Soraya Mcguire DO Nov 02, 2016 10:36 Trent Pride MD Nov 02, 2016 17:54
--- NOTE | 2016-11-02 14:05 | NUR ---
Social Work: Discharge D: Pt discussed in am rounds. pt is medically stable for discharge home today. EMR reviewed; pt has been ambulating I during admission. Pt currently on room air. Per MD at rounds, no sw needs at discharge. No barriers identified at this time by PROFESSOR OF COMMUNICATION. A: Pt who is I at baseline and lives with a friend in [place]. P: Anticipate pt to discharge home today via POV SOLO Sol
--- NOTE | 2016-11-02 15:50 | NUR ---
Discharge Pt left the facility at 1545 with family member present. 2 IVs were removed. Pt not on tele. Gabapentin given at 1530. Discharge instructions were explained as well as information on medications, including new meds. Pt understood. Education material given to pt as well as scripts. Pt left in a wheelchair with all personal belongings.
--- NOTE | 2016-11-04 22:13 | PCM.DC.MED ---
Discharge Summary Date of Service Nov 03, 2016 Dates of Hospitalization Date of Hospital Admission Oct 30, 2016 at 21:03 Date of Discharge: Nov 02, 2016 Providers: Admitting Physician: Osmar Dewitt DO Primary Care Physician: James Reyes DO Attending Physician: Osmar Dewitt DO Diagnosis at Time of Discharge Diagnosis at Time of Discharge 1. Lactic acidosis with anion gap acidosis, acute. 2. Exacerbation of asthma, moderate. 3. Acute sepsis. 4. Probable community acquired pneumonia, acute. 5. Hypertension, chronic. 6. Diabetes mellitus type II not on insulin, chronic. Procedures XRay, CTs & MRIs Date of Service: 10/30/16 1259 PROCEDURE: X-RAY CHEST ONE VIEW, PORTABLE ([id number]) IMPRESSION: Mildly reduced inspiratory volume, but no acute disease. Dictated by: Dillan Navas M.D. on 10/30/2016 at 18:15 ECG 12 Lead Not performed this visit. Brief History From the history and physical performed by Dr. Greg Perdomo on 10/30/2016 : Patient is a 51-year-old morbidly obese gentleman with history of asthma, hypertension, depression who presents to the [facility] ER with a 2 day complaint of respiratory distress. Patient reports that on Sunday night (he was at the [facility] and Sunday nights) he started to experience coughing fits associated with difficulty getting full breath. These coughs were nonproductive. He reports that on Sunday/ he used his nebulizer (albuterol) 3 times, and this helped to relieve some of his symptoms. Unfortunately, early this morning despite feeling well he did use his nebulizer, and reports that since that time this morning he has progressively become more short of breath with more coughing and more respiratory distress. He presented at the [facility] and was subsequently sent to the ER via ambulance. As far as his asthma history: He was diagnosed in 2013, but has yet to perform any PFTs.Spirometry from 02/12/2014 demonstrates prebronchodilator FVC of 3.39 L ( 75%), FEV1 of 2.22 L (60%), FEV1/FVC of approximately 70%, and a PEF of 2.76 L/ s (approximately 33%). Postbronchodilator demonstrates FVC of 3.47 L (76%), FEV1 of 2.62 L (71%), FEV1/FVC of 75%, and a PEF of 4.43 L/s (53%). He denies monitoring PEF on a regular basis. Patient reports that in 2013 he was started on Flovent (and has been compliant with this medication). He reports at the beginning of this year she was switched to Breo (his only complaint with this as he feels that it does not last as long as the Flovent). Otherwise he has been on an albuterol nebulizer, and an albuterol rescue inhaler. The nebulizer he typically uses twice a day before administering his doses of inhaled corticosteroid. The albuterol inhaler he also typically uses 2 times a day. He denies previous ER visits, or hospitalization for his asthma. He denies prior intubation. He denies any use of by mouth steroids. Reports medication compliance. He denies any sick contacts, or recent travel. He reports that his partner does currently smoke, but the patient quit smoking back in 2013. She denies any symptoms associated with a URI or other infection (other than his nonproductive cough as noted). He reports headache associated with cough, and vision difficulty (his contacts have been discontinued due to insurance, and he is awaiting assessment for corrective lenses), he reports that on Sunday and Sunday he had a sore throat but not now, and he reports pain/numbness in his bilateral lower extremities associated with his chronic back pain. In the ER, he received several treatments of nebulized albuterol, and was on BiPAP for a time. He is now off of BiPAP, and reports that he feels much better. He also received an IV dose of Solu-Medrol 125 mg. He also received 2 g of magnesium IV. Patient is admitted under inpatient status with expected length of stay greater than 2 midnights due to severity of presenting symptoms, risk of adverse event, and complexity of treatment plan. Comprehensive review of systems conducted and was negative except for the pertinent positives listed in history of present illness above. Hospital Course Patient is a 51-year-old morbidly obese gentleman with history of asthma, hypertension, depression who presents to the [facility] ER with a 2 day complaint of respiratory distress. Found to have asthma exacerbation. 1. Lactic acidosis with anion gap acidosis, acute. Present on admission. Improved. -Likely related to low oral intake for the two days prior to admission, infection, and albuterol treatments. Additionally, patient was on metformin prior to admission. -Aspirin and Tylenol levels were within normal limits -Patient denied any excessive alcohol use, and per presentation was low risk for ingestion -He was given intravenous normal saline fluids until lactic acid within normal limits 2. Exacerbation of asthma, moderate. Present on admission. Active. -Possible chronic obstructive pulmonary disease given patient's history of smoking. -Much more severe at time of presentation with noted tachypnea, tachycardia and respiratory distress. -Following multiple treatments of albuterol and a period of BiPAP the first night, patient was much improved. -Chest x-ray did not demonstrate any pulmonary infiltrate, and rapid flu was negative. -Patient denied sick contacts, but this could be secondary to URI or pneumonia given his exposure at the [facility]. He was positive for parainfluenza virus. -We continued with DuoNeb's every 4 hours scheduled, with albuterol nebulizers every 2 hours as needed -We switched intravenous steroids to oral prednisone 40 mg twice per day 3. Acute sepsis. Present on admission. Improved. -Met criteria with initial vital signs of 38.2 degrees C, heart rate 112 bpm, and respiratory rate 32. Possible community acquired pneumonia as source of infection. -Patient was noted to be warm and diaphoretic -Elevated lactic acid level, and mildly elevated procalcitonin -HIV and hepatitis C both negative -Blood cultures showed no growth to date and sputum culture showed no normal stephanie -Resumed ceftriaxone 1000 mg intravenous and azithromycin 500 mg intravenous every 24 hours -Intravenous fluids as above 4. Probable community acquired pneumonia, acute. Present on admission. -Patient was positive for parainfluenza virus, which could have caused a secondary bacterial pneumonia. -Antibiotics as above 5. Hypertension, chronic -We continued patient's home antihypertensives 6. Diabetes mellitus type II not on insulin, chronic -HgbA1c was 7.5% Chronic conditions: Hypercholesterolemia- continued statin Morbid obesity- certainly weight loss would be beneficial to his multiple comorbidities History sleep apnea- he denied being on CPAP. I have ordered an outpatient at home sleep study for the patient. He will need his primary care provider to complete paper work after the sleep study to obtain a CPAP. Chronic back pain on opiates- continued his home opiate medication, Cymbalta, gabapentin Exam Vital Signs (Last) Date Time Temp Pulse Resp B/P Pulse Ox O2 Delivery O2 Flow Rate FiO2 11/02/16 12:15 80 18 95 Room Air 11/02/16 08:30 36.3 156/102 11/01/16 15:30 2.00 10/30/16 19:44 40 Exam General: Alert, Oriented X3, Cooperative, no acute distress, obese Head: Normocephalic, atraumatic. External ears normal. Eyes: PERRL, EOMI. Anicteric sclerae. Conjunctivae are not injected Mouth: Mouth Normal, Mucous Membranes Moist/[place] Neck: Neck supple with full range of motion. No Thyromegaly. Chest & Lungs: Cough. Mild end expiratory wheezes appreciated bilaterally. Do not appreciate any rales or rhonchi. Patient is not using accessory muscles. There is no indication of subcutaneous air. Cardiovascular: Regular rate and rhythm, Normal S1, Normal S2, No Murmurs/Rubs/ Gallops Abdomen: Non-tender, Non-distended, No masses, Normoactive bowel tones, Soft Musculoskeletal: Normal Range of Motion Extremities: No cyanosis/clubbing/edema bilaterally Skin: Do not appreciate any rash. Neurological: Grossly Neurologically Intact, Cranial Nerves 2-12 Intact, Normal Speech (speaking in full sentences) Psych: Normal mood and affect. Thought process and content intact. Test 10/30/16 18:03 10/30/16 22:50 10/31/16 01:40 10/31/16 02:45 Troponin T < 0.010ug/L (0.0-0.011) Pro-B-Type Natriuretic Peptide 34.56pg/mL (0-121) Salicylates Level 3.0ug/mL (30-250) Acetaminophen Level 15.0ug/mL Rx (10-25) Hemoglobin A1c 7.5% (4.8-5.6) Hepatitis C Antibody <0.1s/co ratio (0.0-0.9) HIV (1&2) Ag and Ab, 4th Generation Non reactive (Non Reactive) Urine Color Yellow (YELLOW) Urine Appearance Clear (CLEAR,HAZY) Urine pH 6.0 (5.0-8.0) Urine Specific [place] 1.020 (1.003-1.035) Urine Protein 30mg/dL (NEG,TRACE) Urine Glucose (UA) Negativemg/dL (NEGATIVE) Urine Ketones Negativemg/dL (NEGATIVE) Urine Occult Blood Negative (NEGATIVE) Urine Nitrite Negative (NEGATIVE) Urine Bilirubin Negative (NEGATIVE) Urine Urobilinogen Normalmg/dL (NORMAL) Urine Leukocyte Esterase Negative (NEGATIVE) Urine RBC 0-2/hpf (0-2) Urine WBC 0-5/hpf (0-5) Urine Epithelial Cells Occasional/hpf (NONE-MOD) Urine Crystals None seen (NONE SEEN) Urine Bacteria Few/hpf (NONE-FEW) Urine Hyaline Casts Occasional/lpf (NONE) Urine Granular Casts None seen (NONE SEEN) Urine Waxy Casts None seen (NONE SEEN) Urine Red Blood Cell Casts None seen (NONE SEEN) Urine White Blood Cell Casts None seen (NONE SEEN) Urine Mucus Present (None Seen) Urine Trichomonas None seen (NONE SEEN) Urine Yeast None (NONE SEEN) Urinalysis Comment None Urine Culture Reflexed Not indicated Phosphorus Level 4.5mg/dL (2.5-4.9) Magnesium Level 2.3mg/dL (1.6-2.6) Test 11/01/16 05:10 11/02/16 03:10 Procalcitonin 0.09ng/mL (0.00-0.08) White Blood Count 11.0th/mm3 (3.8-10.1) Red Blood Count 5.09mil/mm3 (4.40-5.80) Hemoglobin 14.6g/dL (13.8-17.2) Hematocrit 44.3% (41.0-50.0) Mean Corpuscular Volume 87.0fL (81-100) Mean Corpuscular Hemoglobin 28.7pg (27.0-35.0) Mean Corpuscular Hemoglobin Concent 33.0% (32.0-37.0) Red Cell Distribution Width 13.9% (12.3-15.4) Platelet Count 342bil/L (150-400) Neutrophils (%) (Auto) 79.9% (40-74) Lymphocytes (%) (Auto) 14.6% (14-46) Monocytes (%) (Auto) 4.0% (4-12) Eosinophils (%) (Auto) 0% (0-5) Basophils (%) (Auto) 0.2% (0-3) Sodium Level 142mEq/L (134-144) Potassium Level 4.4mEq/L (3.5-5.2) Chloride Level 104mEq/L (97-108) Carbon Dioxide Level 25mmol/L (18-29) Blood Urea Nitrogen 15mg/dL (6-24) Creatinine 0.84mg/dL (0.76-1.27) Estimat Glomerular Filtration Rate 103mL/min (>59) Glucose Level 213mg/dL (60-99) Lactic Acid Level 2.0mmol/L (0.4-2.0) Calcium Level 8.9mg/dL (8.5-10.1) Total Bilirubin 0.2mg/dL (0.0-1.2) Aspartate Amino Transf (AST/SGOT) 23U/L (0-50) Alanine Aminotransferase (ALT/SGPT) 31U/L (0-44) Alkaline Phosphatase 74U/L (25-150) Total Protein 6.6g/dL (6.4-8.4) Albumin 4.3g/dL (3.4-5.0) Discharge Medications Discharge Medications Amlodipine (Amlodipine) 10 Mg Tablet 10 MG PO DAILY (Reported) Aspirin (Aspirin) 81 Mg Tablet 81 MG PO DAILY (Reported) Atorvastatin (Lipitor) 10 Mg Tab 10 MG PO DAILY (Reported) Azithromycin (Zithromax) 250 Mg Tablet 250 MG PO DAILY Prescribed by: SARA MCGUIRE DO Bupropion HCl (Bupropion HCl ER) 200 Mg Tablet.er 200 MG PO BID (Reported) Duloxetine (Cymbalta) 30 Mg Capsule.dr 30 MG PO DAILY (Reported) Duloxetine (Cymbalta) 60 Mg Capsule.dr 60 MG PO 1700 (Reported) Fluticasone Propionate (Allergy Relief) 50 Mcg/Actuation [place].susp 15.8 ML NS BID (Reported) Gabapentin (Gabapentin) 600 Mg Tablet 600 MG PO TID (Reported) Lisinopril (Lisinopril) 40 Mg Tablet 40 MG PO DAILY (Reported) Metformin (Glucophage) 1,000 Mg Tablet 1,000 MG PO BIDAC (Reported) Prednisone (Deltasone) 20 Mg Tablet 40 MG PO BID Prescribed by: SARA MCGUIRE DO Tiotropium [place] (Spiriva) 18 Mcg Cap.w.dev 18 MCG IH DAILY (Reported) Triamterene/HCTZ 37.5-25 mg (Triamterene/HCTZ 37.5-25 mg) 1 Each Capsule 1 CAPSULE PO DAILY (Reported) As needed ([albuterol sulfate]) 2.5 MG [id number] QID PRN PRN For Shortness of Breath ( Reported) ([ventolin HFA]) 90 MCG INHALATION q4-6hrs PRN PRN For Shortness of Breath ( Reported) oxyCODONE-Acetaminophen 5-325 mg (oxyCODONE-Acetaminophen 5-325 mg) 1 Each Tablet 1 TAB PO q8hrs PRN PRN For Pain (Reported) Followup Plan Discharge Diet: Diabetic Discharge Activity: Limited until seen by PCP Patient Instructions Continue your inhalers and nebulizers as previously prescribed. Continue azithromycin 250 mg once daily for the next 2 days. Start prednisone 40 mg twice per day for the next 5 days. We recommend reading The Diabetes Solution by Andres Yoon and using www.[employer] to help with weight reduction and optimal diabetes control. Follow up with Dr. Reyes or at [facility] in 1 week. You will be contacted about an at home sleep study. Follow-up Provider: James Reyes, Follow-up with PCP in: 1 week Time spent Greater than 30 minutes was spent in preparation of discharge with greater than 50% of that time dedicated to patient counseling and coordination of care. . Attending Statement The patient was seen and examined together with Dr. Mcguire on 11/02/2016 and I agree with the history, exam and plan as outlined in the note above. . copies to: James Reyes DO Capasso, Marissa L DO Nov 03, 2016 19:57 Trent Pride MD Nov 05, 2016 07:55
[2017-01-31] MEDS ORDERED: FLUT1BLS IH (13:50)
[2017-01-31] MEDS ORDERED: PRD1T PO (13:50)
== END 2016-11-02 15:47 | disposition home or self-care (01) | DRG 720 ==
LOC: SED 17:49 → PCC 21:03
PROVIDERS: ADMIT Psychiatry & Neurology Psychiatry; ATTEND Psychiatry & Neurology Psychiatry
PROC: 4A033B1 Measurement of Arterial Pressure, Peripheral, Percutaneous Approach (ICD-10-PCS; principal; 2016-10-30)
PROC: 5A09357 Assistance with Respiratory Ventilation, Less than 24 Consecutive Hours, Continuous Positive Airway Pressure (ICD-10-PCS; 2016-10-30)
DX: A41.9 Sepsis, unspecified organism (principal); J10.00 Influenza due to other identified influenza virus with unspecified type of pneumonia; E87.2 Acidosis; Z68.42 Body mass index [BMI] 45.0-49.9, adult; J45.41 Moderate persistent asthma with (acute) exacerbation; E66.01 Morbid (severe) obesity due to excess calories; Z66 Do not resuscitate; I10 Essential (primary) hypertension; E11.9 Type 2 diabetes mellitus without complications; E78.00 Pure hypercholesterolemia, unspecified; G89.29 Other chronic pain; Z87.891 Personal history of nicotine dependence; Z79.82 Long term (current) use of aspirin

== ENCOUNTER 2017-02-01 09:54 | Day surgery (SDC) | payer OTHER ==
[~2017-02-01] VITALS: Ht 170.2 cm; Wt 142.9 kg
[~2017-02-01 09:54] MED LIST: AMLO10TA3 PO; ASPI-973 PO; ATRV10T PO; BUPR200T34 PO; DULO30CA PO; DULO60CA42 PO; FLUT15.812 NS; FLUT1BLS IH; GABA600T2 PO; LISI40TA PO; Lactated Ringer's 1,000 ML IV ONE; METF1000 PO; OXYC1TAB24 PO; PRD1T PO; TIOT18CA3 IH; TRIA1CAP5 PO; ZIT250 PO; albuterol sulfate NEBULIZ062; ventolin HFA INHALATION
[2017-02-01] MEDS ORDERED: Lidocaine PF 1% 30 mL Inj ONE (09:55)
[2017-02-01] MEDS ORDERED: Propofol 10,000 mCg/mL 20 mL Inj ONE (09:55)
[2017-02-01 10:12] VITALS: BP 119/78; PULSE 90; RESP 16; O2SAT 94
[2017-02-01] MEDS ORDERED: SITA50TA PO (10:19)
[2017-02-01] MEDS ORDERED: Lactated Ringer's 1,000 ML IV SCH (10:39)
--- NOTE | 2017-02-01 10:39 | PCM.HPANE ---
Patient Data Date of Service: February 01, 2017 Surgeon Admitting Provider: Attending Provider:Rosalina Valles MD Primary Care Physician:James Reyes DO Other Provider:Ren Whitmore Anesthesia Reason for Visit Diarrhea, Gerd Ht/WT & BMI Height (Feet): 5 Height (Inches): 7 Weight (Kilograms): 142.88 Body Mass Index 49.00 Allergies Coded Allergies: hydrocodone (Verified Allergy, Intermediate, itchy, 01/31/17) Past Anesthesia History Anesthesia History: Denies:: Abnormal Airway, Anesthesia Reactions, Difficult Intubation, Fam Anesthesia Reaction, Fam Malignant Hypertherm, Malignant Hyperthermia Diabetes History Hx Diabetes?: Yes Current Bedside Blood Glucose: 163 MRSA MRSA: No Medications Blood Thinner: Aspirin Last Dose Blood Thinner: January 30, 2017 Home Meds Incl Beta [place]: No Reported Medications Sitagliptin Phos (Januvia)50 Mg Bcienj57 Mg PO DAILY Ref 0 02/01/17 Fluticasone/Vilanterol (Breo Ellipta 200-25 Mcg INH)200 Mcg-25 Mcg/Dose Blst.w.dev1 Each IH 01/31/17 Duloxetine (Cymbalta)60 Mg Capsule.dr60 Mg PO 1700 Ref 0 10/30/16 [ventolin HFA] No Conflict Check90 Mcg INHALATION q4-6hrs PRN For Shortness of Breath 10/30/16 Triamterene/HCTZ 37.5-25 mg 1 Each Capsule1 Capsule PO DAILY Ref 0 10/30/16 Tiotropium [place] (Spiriva)18 Mcg Cap.w.dev18 Mcg IH DAILY #1 PKG Ref 0 10/30/16 oxyCODONE-Acetaminophen 5-325 mg 1 Each Tablet1 Tab PO q8hrs PRN For Pain Ref 0 10/30/16 Lisinopril 40 Mg Bzbeej71 Mg PO DAILY 30 Days Ref 0 10/30/16 Gabapentin 600 Mg Onyngx629 Mg PO TID Ref 0 10/30/16 Fluticasone Propionate (Allergy Relief)50 Mcg/Actuation [place].susp15.8 Ml NS BID 10/30/16 Aspirin 81 Mg Ypugji76 Mg PO DAILY Ref 0 10/30/16 Bupropion HCl (Bupropion HCl ER)200 Mg Tablet.er200 Mg PO BID 10/30/16 Atorvastatin (Lipitor)10 Mg Tab10 Mg PO DAILY Ref 0 10/30/16 Amlodipine 10 Mg Iliplq58 Mg PO DAILY Ref 0 10/30/16 [albuterol sulfate] No Conflict Check2.5 Mg [id number] QID PRN For Shortness of Breath 10/30/16 Discontinued Reported Medications PredniSONE 1 Mg Tab20 Mg PO UD Ref 0 01/31/17 Duloxetine (Cymbalta)30 Mg Capsule.dr30 Mg PO DAILY Ref 0 NS 10/30/16 Metformin (Glucophage)1,000 Mg Tablet1,000 Mg PO BIDAC Ref 0 10/30/16 Discontinued Scripts Azithromycin (Zithromax)250 Mg Fwgvni618 Mg PO DAILY #2 TABLET Ref 0 Prov:MaynorSoraya L DO 11/02/16 Prednisone (Deltasone)20 Mg Wvsbls36 Mg PO BID #20 TABLET Prov:Soraya Mcguire DO 11/02/16 History History of ENT Problems?: No HEENT History: Denies:: Abnormal Airway Difficult Intubation Dysphagia Hearing Problem Denture Type: None Teeth Condition: Missing Teeth Hx of Heart Problems?: Yes Cardiovascular History: Positive for:: Hypertension Denies:: AICD Atrial Fibrillation Chest Pain Congestive Heart Failure Edema Heart Murmur Irregular Heartbeat Pacemaker Thrombophlebitis Valvular Heart Disease Hx of Respiratory Problem?: Yes Respiratory History: Positive for:: Asthma COPD Dyspnea Denies:: Chest Surgery Cough Emphysema Hemoptysis Pneumonia Tuberculosis Hx Neurologic Problems?: Yes Neurological History: Positive for:: Headaches Denies:: Alzheimer's Disease CVA Dementia Dizziness Parkinson's Disease Seizures Hx of GI Problems?: Yes Gastrointestinal History: Positive for:: Gastroesphageal Reflux Rectal Bleeding Hx of Problems?: No Genitourinary History: Denies:: HX of Hemodialysis Kidney Stones Urinary Tract Infection HX of Peritoneal Dialysis: No Male Hx: Denies:: Prostate Problems Scrotal Mass Testicular Surgery Hx Musculoskeletal Problems?: Yes Musculoskeletal History: Positive for:: 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") Fibromyalgia Denies:: Joint Replacement Musculoskeletal Trauma Hx of Psycho/Social Problems?: Yes Psycho Social History: Positive for:: Hx Depression Suicide Attempt (33 years ago) Denies:: Anxiety Bipolar Disorder Hx Surgeries?: Yes (CYST REMOVAL) Hx Any Other Health Problems?: Yes Other History: Denies:: Cancer Hospitalization Thyroid Disease History Blood Transfusions: Denies:: Blood Transfusions Hx Diabetes: YesBedside Blood Glucose: 163 Hx Alcohol Use: YesHx Substance Use: No Smoking Status: Former Smoker Stop/Bang Treated for Sleep Apnea?: Yes Do You Have a CPAP Machine?: Yes (DOES NOT HAVE A CPAP MACHINE) S-Snoring: Do You Snore Loudly: Yes T-Tired: feel tired, fatigued: Yes O-Obsered: Observed not breath: Yes P-Blood Pressure: treated: Yes B- Body Mass Index > 35 kg/m2: Yes A- Age over 50: Yes N- Neck Large Circumference: Yes G- Gender Male: Yes JEFF Total Score: 8 JEFF Risk Assessment: High Risk, =/>3 Yes Risk Assessment Category Category 1A: Patient has history of documented sleep apnea, and HAS NOT received any narcotic, sedative or anesthesia administration during this stay. Category 1B: Patient has history of documented sleep apnea, and HAS received any narcotic , sedative or anesthesia administration during this stay Category 2: Patient has SUSPECTED Obstructive Sleep Apnea, and HAS received any narcotic , sedative or anesthesia administration during this stay. Category 3: Patient has SUSPECTED Obstructive Sleep Apnea and HAS NOT received narcotic, sedative or anesthesia administration during this stay. Category 4: Outpatient in Procedural Areas with known sleep apnea or who screen positive for High Risk via the STOP/BANG questionnaire. Exam Exam Vital Signs Vital Signs Date Time Temp Pulse Resp B/P Pulse Ox O2 Delivery O2 Flow Rate FiO2 02/01/17 10:12 37.5 90 16 119/78 94 Room Air General Appearance: Alert, Oriented X3, Cooperative HEENT/AIRWAY: MP 3, Neck Movement (Ok, thick), Mouth Opening (Wide) Lungs: Clear to Auscultation, Normal Air Movement Heart: Regular Rate/Rhythm, Normal S1, Normal S2 Meds/Labs/Diagnostics Admission Meds Current Medications Lactated Ringer's (Lr) 1,000 ml @ 10 mls/hr Q24H ONCE IV Last administered on 02/01/17t 10:30; Start 02/01/17 at 06:00; Stop 02/02/17 at 05:59 Bedside Blood Glucose: 163 Plan Impression Patient chart reviewed, patient interviewed and anesthestic plan with risks, benefits, and alternatives discussed, and informed consent obtained. NPO per Anesth. Guidelines: Yes ASA Physical Status: ASA3 Severe Disease Anesthetic Plan: MAC Bene/Risks/Altern/Consents: Yes HP Complete Prior to Induction: Yes Jose Salcedo MD February 01, 2017 10:39
[2017-02-01] MEDS ORDERED: MetoCLOpramide 5 mg/mL 2 mL Inj IVPUSH PRN (10:40)
[2017-02-01] MEDS ORDERED: Ondansetron 2 mg/mL 2 mL Inj IVPUSH PRN (10:40)
[2017-02-01 11:17] VITALS: BP 94/74; PULSE 97; RESP 16; O2SAT 94
--- NOTE | 2017-02-01 11:24 | PCM.ANEP1 ---
Post Anesthesia PACU Phase 1 Assessment Date of Service: February 01, 2017 Vital Signs Vital Signs Date Time Temp Pulse Resp B/P Pulse Ox O2 Delivery O2 Flow Rate FiO2 02/01/17 11:17 97 16 94/74 94 Room Air 02/01/17 10:12 37.5 90 16 119/78 94 Room Air Anesthetic Administered: MAC Level of Alertness: Awake, talking GUPTA's with Equal Strength: Yes Pain: No Nausea or Vomiting: No CV Function & Hydration Stable: Yes Airway Device: Oxygen Delivery: Room Air Lungs: Normal Air Movement PACU Phase 2 Assessment Complications: No Follow up Care: No Patient Instructions Provided: N/A Jose Salcedo MD February 01, 2017 11:24
[2017-02-01 11:27] VITALS: BP 118/67; PULSE 85; RESP 16; O2SAT 93
--- NOTE | 2017-02-01 12:49 | ENDO ---
[address] [address] ENDOSCOPY PROCEDURE PATIENT: DINO GREGG : 1965 MR#: [id number] ADMIT: 02/01/2017 JOB ID: [id number] DATE OF PROCEDURE: 02/01/2017 FIRST PROCEDURE PERFORMED: Esophagogastroduodenoscopy. INDICATION: Gastroesophageal reflux disease. ASA CLASSIFICATION/MALLAMPATI SCORE/MEDICATIONS: As per Dr. Jose Salcedo's anesthesia report. INSTRUMENT USED: [id number]. PROCEDURE DETAILS: After informed consent was obtained, the patient was brought in to the GI suite, where he was placed on oxygen via nasal cannula, and monitored with continuous pulse oximeter, telemetry, and blood pressure monitoring. A time-out was performed. Then he was placed in a left lateral decubitus position. A bite block was placed. A standard EGD scope was then inserted through the bite block and advanced under direct visualization to the second portion of the duodenum without difficulty. FINDINGS: 1. Normal-appearing duodenal bulb, first and second portion. Multiple random biopsies were obtained. 2. Normal-appearing pylorus. In the antrum, at approximately the 10 o'clock position, there was a thickened fold. Multiple biopsies were obtained. 3. Retroflexed views in the gastric body revealed a normal-appearing cardia and fundus. 4. Multiple random biopsies were obtained throughout the antrum and body the stomach. 5. Normal-appearing GE junction with a regular Z-line at 45 cm. 6. Normal-appearing esophagus. IMPRESSION: Thickened antral fold. Otherwise, normal examination to the second portion of the duodenum. RECOMMENDATIONS: 1. Await biopsy results. 2. Encourage weight loss. 3. Reflux precautions. 4. Continue PPI daily. 5. Proceed to colonoscopy. SECOND PROCEDURE PERFORMED: Colonoscopy. INDICATION: Diarrhea. ASA CLASSIFICATION/MALLAMPATI SCORE/MEDICATIONS: Please see above for ASA classification, Mallampati score, and medications. INSTRUMENT USED: [id number]. PREPARATION QUALITY: Good. PROCEDURE DETAILS: After completion of the EGD exam, the patient was turned, and then a digital rectal exam was performed, which was limited secondary to patient's body habitus. The colonoscope was then inserted into the rectum and advanced under direct visualization to the cecum, which was identified by the presence of the ileocecal valve and appendiceal orifice. Once the cecum was reached, the terminal ileum was intubated, which was identified by the presence of the villous-appearing mucosa and the ileocecal valve. From the terminal ileum, the colonoscope was then withdrawn back into the rectum as the mucosa and lumen were examined. In the rectum, retroflexion was performed. Following retroflexion, the remaining air in the rectum was suctioned, and the procedure was completed. FINDINGS: 1. Normal-appearing terminal ileum. Multiple random biopsies were obtained. 2. Normal-appearing colon mucosa from rectum to cecum. Multiple random biopsies were obtained. 3. In the descending colon, there was an approximately 3-4 mm sessile polyp that was removed with a cold snare. 4. Retroflexed views in the rectum revealed [id number] internal hemorrhoids. IMPRESSION: 1. Descending colon polyp. 2. Internal hemorrhoids. 3. Otherwise, normal examination from rectum to terminal ileum. RECOMMENDATIONS: 1. Await biopsy results. 2. Followup in GI Clinic. COMPLICATIONS: None. ESTIMATED BLOOD LOSS: Less than 5 mL.
--- NOTE | 2017-02-02 10:43 | PATH ---
SURGICAL PATHOLOGY Attending Physician:Stella Menard CASE STATUS: Signed Out PATIENT NAME: DINO GREGG PID: [id number] : 1965 DATE COLLECTED:02/01/2017 00:00 SPECIMEN: 1: Duodenum, Biopsy 2: Gastric, Biopsy 3: Stomach, Antrum, Biopsy 4: Colon, Biopsy 5: Colon, Biopsy 6: Ileum, Biopsy CLINICAL HISTORY: 1). DUODENAL BIOPSY 2). GASTRIC BIOPSY 3). ANTRAL FOLD BIOPSY 4). RANDOM COLON BIOPSY 5). DESCENDING POLYP X1 6). TERMINAL ILEUM BIOPSY FINAL DIAGNOSIS: 1.DUODENAL BIOPSY: CHANGES OF CHRONIC DUODENITIS WITH FOCAL FOVEOLAR METAPLASIA. Negative for evidence of celiac disease. Negative for dysplasia and malignancy. 2.GASTRIC BIOPSY: MILD CHRONIC GASTRITIS INVOLVING ANTRAL AND FUNDIC MUCOSA. Negative for evidence of Helicobacter. Negative for intestinal metaplasia. Negative for dysplasia and malignancy. 3.ANTRAL FOLD BIOPSY: MILD CHRONIC GASTRITIS INVOLVING ANTRAL MUCOSA. Negative for evidence of Helicobacter. Negative for intestinal metaplasia. Negative for dysplasia and malignancy. 4.RANDOM COLON BIOPSIES: FRAGMENTS OF NORMAL-APPEARING COLON MUCOSA. Negative for significant architectural distortion. Negative for significant inflammation, dysplasia and malignancy. 5.DESCENDING COLON POLYP: TUBULAR ADENOMA INVOLVING SINGLE BIOPSY FRAGMENT. 6.TERMINAL ILEUM BIOPSY: TERMINAL ILEAL MUCOSA WITH FOCAL AREA OF MUCOSAL SCARRING CONSISTENT WITH PREVIOUS MUCOSAL INJURY. Negative for granulomas. Negative for significant inflammation, dysplasia and malignancy. ICD10 D12.4 GROSS DESCRIPTION: The specimen is received in six formalin filled containers labeled with the patient's name. 1). The specimen is sublabeled "duodenal" and consists of multiple tiny fragments of tissue which aggregate to 0.4 x 0.4 x 0.2 CM. The specimen is entirely submitted in cassette 1A. 2). The specimen is sublabeled "gastric" and consists of 3 portions of tissue which aggregate to 0.3 x 0.3 x 0.2 CM. The specimen is entirely submitted in cassette 2A. 3). The specimen is sublabeled "antral fold" and consists of 2 portions of tissue which aggregate to 0.3 x 0.3 x 0.2 CM. The specimen is entirely submitted in cassette 3A. 4). The specimen is sublabeled "random colon" and consists of multiple portions of tissue which aggregate to 0.6 x 0.6 x 0.3 CM. The specimen is entirely submitted in cassette 4A. 5). The specimen is sublabeled "descending polyp" and consists of 3 portions of tissue which aggregate to 0.3 x 0.3 x 0.2 CM. The specimen is entirely submitted in cassette 5A. 6). The specimen is sublabeled "TI" and consists of 4 portions of tissue which aggregate to 0.4 x 0.4 x 0.3 CM. The specimen is entirely submitted in cassette 6A. 02/01/2017 [facility] MICRO DESCRIPTION: See diagnosis. ICD-9 CODES: CPT CODES: 1: 49629 2: 71930 3: 27044 4: 48902 5: 19228 6: 53792 Electronically Signed Out Arnie Ocampo MD [facility] Pathology [facility] [address], [place] [address] Technical component performed at [facility], [facility] [address], [place], [address]
== END 2017-02-01 23:59 | disposition home or self-care (01) ==
LOC: END 09:54
PROVIDERS: ATTEND Internal Medicine Gastroenterology
DX: D12.4 Benign neoplasm of descending colon (principal); K64.8 Other hemorrhoids; K29.50 Unspecified chronic gastritis without bleeding; K29.80 Duodenitis without bleeding; K21.9 Gastro-esophageal reflux disease without esophagitis; R19.7 Diarrhea, unspecified; I10 Essential (primary) hypertension; E78.2 Mixed hyperlipidemia; F32.9 Major depressive disorder, single episode, unspecified; G47.33 Obstructive sleep apnea (adult) (pediatric); E11.9 Type 2 diabetes mellitus without complications; E66.01 Morbid (severe) obesity due to excess calories; J44.9 Chronic obstructive pulmonary disease, unspecified; J45.909 Unspecified asthma, uncomplicated; M79.7 Fibromyalgia; Z68.42 Body mass index [BMI] 45.0-49.9, adult; Z79.84 Long term (current) use of oral hypoglycemic drugs; Z79.82 Long term (current) use of aspirin; Z87.891 Personal history of nicotine dependence
CPT/HCPCS: 43239; 45380; 45385; J7120